=== PATIENT | female | born 1945 | race Caucasian/White ===

== ENCOUNTER → 2017-10-22 | Outpatient (CLI) | payer MEDICARE, OTHER ==
[2017-10-22 14:10] LABS: HCT 39.2 % (34.0-46.0); HGB 12.9 gm/dL (11.4-16.0); MCH 31.2 pg (25.0-35.0); MCHC 32.9 g/dL (31.0-37.0); MCV 94.7 fL (80.0-100.0); Platelet Count 248 k/uL (150-450); RBC 4.13 m/uL (3.80-5.40); RDW 13.2 % (11.5-15.5); WBC 3.6 k/uL (3.8-10.6)
[2017-10-22 14:12] LABS: Appearance,Urine Clear (Clear); Bilirubin,Urine Negative (Negative); Blood,Urine Negative (Negative); Color,Urine Yellow; Glucose,Urine (UA) Negative (Negative); Ketones,Urine Negative (Negative); Leukocyte Esterase,Urine Negative (Negative); Nitrite,Urine Negative (Negative); PH, Urine 7.5 (5.0-8.0); Protein,Urine Trace (Negative); Specific Gravity,Urine 1.018 (1.001-1.035); Urobilinogen,Urine <2.0 mg/dL (<2.0)
[2017-10-22 14:19] LABS: ALT 27 U/L (9-52); AST 29 U/L (14-36); Alkaline Phosphatase 52 U/L (38-126); Anion Gap 8 mmol/L; Blood Urea Nitrogen 23 mg/dL (7-17); Calcium 9.4 mg/dL (8.4-10.2); Carbon Dioxide 30 mmol/L (22-30); Chloride 104 mmol/L (98-107); Glucose 77 mg/dL (74-99); Potassium 4.6 mmol/L (3.5-5.1); Sodium 142 mmol/L (137-145); Total Bilirubin 0.4 mg/dL (0.2-1.3); Total Protein 6.6 g/dL (6.3-8.2)
[2017-10-22 14:23] LABS: INR 1.1 (<1.2); Partial Thromboplastin Time 23.3 sec (22.0-30.0); Prothrombin Time 10.6 sec (9.0-12.0)
== END | disposition home or self-care (01) ==
LOC: LABPAT 13:15
PROVIDERS: ATTEND Orthopaedic Surgery
DX: Z01.812 Encounter for preprocedural laboratory examination (principal); Z79.01 Long term (current) use of anticoagulants
CPT/HCPCS: 36415; 80053; 81003; 85027; 85610; 85730; 86850; 86900; 86901; 87070

== ENCOUNTER 2017-10-30 05:59 | Inpatient (IN) | payer MEDICARE, OTHER ==
[2017-10-23 11:02] VITALS: BMI 27.4
[~2017-10-30 05:59] MED LIST: ACETAMINOPHEN TAB 500 MG TAB PO ONE; DEXAMETHASONE SOD PHOSPHATE 10 MG/ML 1 ML VIAL IV ONE; LACTATED RINGERS 1,000 ML IV SCH; MELOXICAM 7.5 MG TAB PO ONE; MIDAZOLAM 2 MG/2 ML VIAL IV PRN; ONDANSETRON 4 MG/2 ML VIAL IVP ONE; ROPIVACAINE 246.25 MG, EPINEPHrine 0.5 MG, KETOROLAC 30 MG, cloNIDine HCL/PF 80 MCG, WA... MISCELLANE ONE; TRANEXAMIC ACID 1,000 MG in SODIUM CHLORIDE 0.9% 50 ML IVPB ONE; fentaNYL (PF) 50 MCG/ML 2 ML AMP IV PRN
[2017-10-30] MEDS ORDERED: LIDOCAINE 1% 20 ML VIAL (10MG/ML) FOR IV START INTRADERMA ONE (06:25)
[2017-10-30] MEDS ORDERED: DIAZEPAM 5 MG TAB PO PRN ×2 (07:01)
[2017-10-30] MEDS ORDERED: HYDROmorphone 1 MG/ML 1 ML SYRINGE IVP PRN ×3 (07:01)
[2017-10-30] MEDS ORDERED: HYDROcodone/APAP 5-325MG 1 EACH TAB PO PRN ×2 (07:01)
[2017-10-30] MEDS ORDERED: NALOXONE 0.4 MG/ML 1 ML VIAL IV PRN (07:01)
[2017-10-30] MEDS ORDERED: ONDANSETRON 4 MG/2 ML VIAL IVP PRN (07:01)
[2017-10-30] MEDS ORDERED: MAGNESIUM HYDROXIDE 2,400 MG/10 ML CUP PO PRN (07:01)
[2017-10-30] MEDS ORDERED: ceFAZolin 3,000 MG in SODIUM CHLORIDE 0.9% IRRIGATIO 3,000 ML IRRIGATION ONE (07:03)
[2017-10-30] MEDS: ceFAZolin IN SWFI 2 GM/20 ML SYRINGE IVP ONE ×2 (07:03→07:23)
[2017-10-30] MEDS ORDERED: Acetaminophen-Codeine 300-30mg TAB PO PRN (07:10)
[2017-10-30] MEDS ORDERED: LACTATED RINGERS 1,000 ML IV ONE (08:03)
--- NOTE | 2017-10-30 08:37 | FL ---
EXAMINATION TYPE: FL guidance operating room DATE OF EXAM: 10/30/2017 HISTORY: Flouroscopy time 29 seconds of fluoroscopy provided. IMPRESSION: 1. Fluoroscopy time.
--- NOTE | 2017-10-30 08:38 | XR ---
EXAMINATION TYPE: XR Hip Limited RT DATE OF EXAM: 10/30/2017 COMPARISON: NONE HISTORY: Postop TECHNIQUE: One view submitted. FINDINGS: There is a prosthetic hip in near anatomic alignment. There is soft tissue edema and emphysema. IMPRESSION: 1. Postoperative change. Appears in near-anatomic alignment.
--- NOTE | 2017-10-30 08:42 | P.OP ---
Date of Procedure: 10/30/17 Preoperative Diagnosis: Severe osteoarthritis right hip Postoperative Diagnosis: Severe osteoarthritis right hip Procedure(s) Performed: Right total hip arthroplasty with a direct anterior approach Implants: Cleaning and nephew Polarstem size 4 standard Cleaning [employer] Nephew R3, 3 hole acetabular shell, 48 mm Cleaning [employer] Nephew reflection 6.5 mm cancellus screw, 20 mm 2 Cleaning [employer] Nephew R3, XLPE 20 acetabular liner Cleaning [employer] Nephew Oxinium femoral head 32 m, +0 All components were press-fit. The articulation is Oxinium on polyethylene. Anesthesia: spinal Surgeon: Demarcus Yarbrough Drum Dyeing Machine Operator #1: Jennifer Srinivasan Estimated Blood Loss (ml): 100 Pathology: other (Femoral head) Condition: stable Disposition: PACU Indications for Procedure: After failure of conservative treatment we discussed the surgical and nonsurgical treatment options at length. Patient wishes to proceed with a total hip arthroplasty with a direct anterior approach. Complications specific to this procedure were discussed at length, including but not limited to infection, leg length discrepancy, dislocation, and nerve injury. Patient is aware of all these complications and informed consent was obtained Operative Findings: The operative findings are consistent with severe osteoarthritis of the right hip Description of Procedure: Patient was seen and evaluated in the preoperative area, consent was reviewed, and the surgical site was marked with a skin marker. Patient was then brought to the operating room and given prophylactic antibiotics intravenously. 1 g of Tranexamic acid was also given. A spinal anesthetic was administered by the anesthesia department. The patient was then placed on the [place] table with the bony prominences well-padded. The hip area was then prepped and draped in usual sterile fashion. A universal timeout was then performed, which confirmed the patient's name, surgical site, ALLERGIES, and procedure being performed. Next the incision site was located at 1 cm distal and 1 cm lateral to the anterior superior iliac spine. The skin and subcutaneous tissues were sharply incised. Incision was carefully dissected down to the fascia overlying the tensor fascia kartik muscle. This fascia was then incised in line with the incision. Next, using blunt finger dissection, the tensor fascia kartik muscle was dissected off its investing fascia. The muscle was then carefully retracted laterally with a cobra retractor over the lateral neck of the femur. Next, the circumflex vessels were identified and cauterized using the AquaMantis device. The anterior hip capsule was then exposed. The capsule was then opened and an inverted T fashion. Cobra retractors were then placed intracapsularly. The proximal femur was then visualized. The femoral neck was then osteotomized appropriate level above the lesser trochanter. Small amount of traction was placed with the [place] table. A small wedge of bone was then removed from the remaining femoral head. Next, using a corkscrew femoral head was easily removed from the acetabulum. On gross visual inspection, the femoral head had complete loss of articular cartilage in multiple periarticular osteophytes. Attention was then turned to the acetabulum. the acetabulum was exposed and any remaining labrum was excised. Sequential reaming of the acetabulum was performed using fluoroscopic guidance. When the appropriate size was reached, a trial was then placed. The position and fit of the trial was checked with fluoroscopy. The trial was then removed. Then, using fluoroscopic guidance, the final implant was impacted at 20 of anteversion and 40 of abduction, and fully seated in the acetabulum. 2 screws were then placed in the acetabulum. Again fluoroscopy was used to check position of the screws. Next, the liner was then impacted, with a 20 elevated liner located in the anterior superior quadrant. Component locking was confirmed. Attention was then directed to the femur. With the aid of the [place] table, the femur was externally rotated to approximately 130, extended, and abducted under the opposite leg. A side hook was then placed under the proximal femur, and the side hook elevator was used to elevate the proximal femur. Retractors were then placed. A capsular release was performed, as well as a release of the conjoined tendon, which afforded excellent visualization of the proximal femur. Next, a box osteotome was used to lateralize the proximal femur. A speeder hand was then used to locate the femoral canal. Sequential broaching was then performed with appropriate size which afforded excellent fixation in the proximal femur. A trial was then placed with appropriate head and neck, and the hip was gently reduced with the aid of the [place] table. Fluoroscopy was then used to check position of the components, as well as to ensure equal leg lengths. The hip was then gently dislocated and the trials were then removed. Final implants were then impacted and the hip was again reduced. Final fluoroscopic x-rays confirmed that the components were in anatomic position, as well as equal leg lengths. The hip was also taken through range of motion, and found to be stable. The hip was then copiously irrigated with antibiotic solution with pulsatile lavage. The hip was then irrigated with Irrisept solution. The soft tissues were then injected with a ropivacaine solution, which consisted of 246.25 mg of ropivacaine, 0.5 mg of epinephrine, 30 mg of Toradol, 80 g of clonidine, and 48.45 mL of sterile water, for a total of 100 mL of fluid injected. A second dose of 1 g of Tranexamic acid was also given. the fascia was then closed with 2-0 strata fix suture. The subcutaneous tissue was closed with 3-0 Vicryl. The subcuticular tissue was closed with 3-0 strata fix suture. The skin was then closed with Dermabond glue and a sterile silver dressing. The patient was then transferred to the recovery room in stable condition. The assistant professor surgical technology KENAN Bello was required due to the complexity of surgery, and the need for skilled surgical technologist for positioning, draping, exposure, retraction, and closure of the wound.
[2017-10-30] MEDS: SODIUM CHLORIDE 0.9% 1,000 ML IV SCH (10:36)
[2017-10-30] MEDS ORDERED: LORATADINE 10 MG TAB PO PRN (13:51)
[2017-10-30] MEDS: Acetaminophen-Codeine 300-30mg TAB PO PRN ×2 (14:39→20:51)
[2017-10-30] MEDS: ceFAZolin IN SWFI 2 GM/20 ML SYRINGE IVP SCH ×2 (15:32→23:32)
--- NOTE | 2017-10-30 15:50 | P.HPIM ---
History of Present Illness H&P Date: 10/30/17 Chief Complaint: right total hip arthroplasty anterior approach thisis a [id number] of Dr. Ferrer. She has underlying history of hypothyroidism, sciatica, asthma, hyperlipidemia,admitted to service of Dr. Yarbrough for a right total hip arthroplasty performed on 10/30/2017by anterior approach.patient was seen few hours postoperatively and is doing well, patient denies any nausea or vomiting, pains under control. Patient does not any chest pain no lightheadedness, patient is seen with the daughter at bedside, no current concerns.patient has previous left total hip arthroplasty in 2008, no complications then, when anticipating home therapy with the daughter post discharge. No history of DVT or PE in the past, no history of falls no unsteadiness of the gait except recently when she had an exacerbation of her sciatica, patient required a walker use and a trigger injection in the office given left legO week ago. patient recently required a walker use prior to the current surgery. Review of Systems Constitutional: Reports as per HPI, Denies anorexia, Denies chills, Denies chronic headaches, Denies chronic pain, Denies daytime sleepiness, Denies fatigue, Denies fever, Denies lethargy, Denies malaise, Denies night sweats, Denies poor appetite, Denies sweats, Denies weakness, Denies weight gain, Denies weight loss Ears, nose, mouth and throat: Reports as per HPI, Denies ant. neck pain, Denies bleeding gums, Denies dental pain, Denies dysphagia, Denies epistaxis, Denies headache, Denies hoarseness, Denies mouth pain, Denies nasal congestion, Denies nasal discharge, Denies neck fullness/pressure, Denies neck lump, Denies nose pain, Denies odynophagia, Denies post-nasal drip, Denies sinus pain, Denies sinus pressure, Denies swelling in mouth, Denies swelling in throat, Denies sore throat, Denies vertigo, Denies voice changes Cardiovascular: Reports as per HPI, Denies chest pain, Denies claudication, Denies decreased exercise tolerance, Denies dyspnea on exertion, Denies edema, Denies high blood pressure, Denies irregular heart beat, Denies leg edema, Denies lightheadedness, Denies orthopnea, Denies palpitations, Denies paroxysmal nocturnal dyspnea, Denies phlebitis, Denies rapid heart beat, Denies shortness of breath, Denies syncope Respiratory: Reports as per HPI Gastrointestinal: Reports as per HPI Genitourinary: Reports as per HPI Menstruation: Reports as per HPI, Denies amenorrhea, Denies amenorrhea on BC, Denies currently menstrual, Denies cycle < 21 days, Denies cycle > 35 days, Denies cycle variable, Denies menses 1-7 days, Denies menses 8 or > days, Denies menses variable, Denies period heavy, Denies period light, Denies period normal, Denies period spotting, Denies post hysterectomy, Denies postmenopausal , Denies premenarcheal Musculoskeletal: Reports as per HPI, Denies arm numbness/tingling, Denies atrophy, Denies fractures, Denies frequent falls, Denies gait dysfunction, Denies hot joints, Denies leg numbness/tingling, Denies limitation of motion, Denies loss of height, Denies low back pain, Denies morning stiffness, Denies muscle cramps, Denies muscle weakness, Denies myalgias, Denies neck pain, Denies neck stiffness, Denies prior amputations, Denies redness of joints, Denies shooting arm pain, Denies shooting leg pain Integumentary: Reports as per HPI, Denies acne, Denies boils, Denies brittle nails, Denies change in hair/nails, Denies color changes, Denies darkening of skin, Denies depigmentation, Denies dryness, Denies foot/leg ulcers, Denies growths, Denies hirsutism, Denies lesions, Denies onychomycosis, Denies pruritus , Denies rash, Denies sores, Denies striae, Denies unusual bruising, Denies wounds Neurological: Reports as per HPI, Denies aphasia, Denies ataxia, Denies balance difficulties, Denies burning pain, Denies change in mentation, Denies change in smell/taste, Denies change in speech, Denies confusion, Denies convulsions, Denies double vision, Denies gait dysfunction, Denies head injury, Denies headaches, Denies hearing difficulties, Denies lack of coordination, Denies loss of vision, Denies memory loss, Denies migraines, Denies motor disturbance, Denies numbness, Denies paralysis, Denies paresthesias, Denies seizures, Denies sensory deficit, Denies spasticity, Denies syncope, Denies tic, Denies tingling , Denies transient paralysis, Denies tremors, Denies vertigo, Denies weakness, Denies visual changes Psychiatric: Reports as per HPI, Denies anhedonia, Denies anxiety, Denies anxiety attacks, Denies change in appetite, Denies change in libido, Denies change in sleep habits, Denies confusion, Denies depression, Denies difficulty concentrating, Denies disorientation, Denies hallucinations, Denies hopelessness , Denies hypersomnia, Denies insomnia, Denies irritability, Denies memory loss, Denies mood swings, Denies paranoia, Denies sadness/tearfulness, Denies sleep disturbances, Denies suicidal ideation Endocrine: Reports as per HPI, Denies cold intolerance, Denies deepening of the voice, Denies excessive sweating, Denies excessive thirst, Denies fatigue, Denies flushing, Denies heat intolerance, Denies high blood sugars, Denies increase in ring/shoe/hat size, Denies low blood sugars, Denies nocturia, Denies palpitations, Denies polydipsia, Denies polyphagia, Denies polyuria, Denies proptosis, Denies recent glucocorticoid use, Denies thyroid mass, Denies weight change Hematologic/Lymphatic: Reports as per HPI, Denies easy bleeding, Denies easy bruising, Denies lymphadenopathy, Denies lymphedema, Denies thrombophilia Allergic/Immunologic: Reports as per HPI, Denies allergic rhinitis, Denies anaphylaxis, Denies angioedema, Denies gluten intolerance, Denies persistent infections, Denies seasonal allergies, Denies urticaria, Denies wheezing Past Medical History Past Medical History: Asthma, Hyperlipidemia, Osteoarthritis (OA), Thyroid Disorder History of Any Multi-Drug Resistant Organisms: None Reported Past Surgical History: Breast Surgery, Joint Replacement, Tubal Ligation Additional Past Surgical History / Comment(s): breast biopsy, left hip replaced ; colonoscopy Past Anesthesia/Blood Transfusion Reactions: Postoperative Nausea & Vomiting ( PONV) Past Psychological History: ADD/ADHD Smoking Status: Former smoker Past Alcohol Use History: None Reported Additional Past Alcohol Use History / Comment(s): smoked socially from her 30's to 50's Past Drug Use History: None Reported - Past Family History Mother Family Medical History: No Reported History Medications and Allergies Home Medications Medication Instructions Recorded Confirmed Type Atomoxetine HCl [Strattera] 40 mg PO DAILY 08/21/13 10/30/17 History Atorvastatin Calcium [Lipitor] 10 mg PO Q48H 08/21/13 10/30/17 History Budesonide-Formot 160-4.5 Mcg 2 puff INHALATION RT-DAILY 08/21/13 10/30/17 History [Symbicort 160-4.5 Mcg Inhaler] Cetirizine HCl [Zyrtec] 10 mg PO DAILY 08/21/13 10/30/17 History Levothyroxine Sodium [Synthroid] 100 mcg PO DAILY 08/21/13 10/30/17 History Biotin 10,000 mcg PO DAILY 10/23/17 10/30/17 History Cartilage/Collagen/Bor/Hyalur 1 tab PO DAILY 10/23/17 10/30/17 History [Move Free Ultra Tablet] Cholecalciferol (Vitamin D3) 2,000 unit PO DAILY 10/23/17 10/30/17 History [Vitamin D3] Multivitamins, Thera [Multivitamin 1 tab PO DAILY 10/23/17 10/30/17 History (formulary)] Naproxen Sodium [Aleve] 220 mg PO Q12HR PRN 10/23/17 10/30/17 History Olopatadine HCl 1 applic BOTH EYES DAILY 10/23/17 10/30/17 History diphenhydrAMINE HCL [Benadryl] 25 mg PO HS 10/23/17 10/30/17 History Allergies Allergy/AdvReac Type Severity Reaction Status Date / Time codeine AdvReac Nausea & Verified 10/30/17 13:44 Vomiting Physical Exam Vitals: Vital Signs Temp Pulse Pulse Resp BP BP Pulse Ox 10/30/17 14:34 98.5 F 85 104/72 94 L 10/30/17 12:00 70 115/80 10/30/17 11:45 73 116/76 10/30/17 11:30 67 105/75 10/30/17 11:15 73 110/65 95 10/30/17 11:00 65 110/71 100 10/30/17 10:45 72 101/72 92 L 10/30/17 10:30 69 111/80 10/30/17 10:15 72 106/75 98 10/30/17 10:00 96.9 F L 69 113/76 10/30/17 09:35 71 16 96/55 96 10/30/17 09:20 69 16 89/50 100 10/30/17 09:05 67 16 88/5 100 10/30/17 08:51 97.1 F L 73 14 93/51 100 10/30/17 06:25 98.2 F 92 16 132/83 96 Intake and Output 10/30/17 10/30/17 10/30/17 06:59 14:59 22:59 Intake Total 100 2251 Output Total 100 Balance 100 2151 Intake: IV 100 1951 Oral 300 Output: Estimated Blood Loss 100 Other: # Voids 1 Weight 68.039 kg - Constitutional General appearance: cooperative - EENT Eyes: anicteric sclerae, EOMI, PERRLA, dentition normal, normal appearance ENT: NA/AT, normal oropharynx - Neck Neck: normal ROM - Respiratory Respiratory: bilateral: CTA, negative: diminished, dullness, rales - Cardiovascular Rhythm: regular Heart sounds: normal: S1, S2 Abnormal Heart Sounds: no systolic murmur, no diastolic murmur, no rub, no S3 Gallop, no S4 Gallop, no click, no other - Gastrointestinal General gastrointestinal: normal bowel sounds, soft - Integumentary Integumentary: normal, normal turgor - Neurologic Neurologic: CNII-XII intact - Musculoskeletal Musculoskeletal: strength equal bilaterally - Psychiatric Psychiatric: A&O x's 3, appropriate affect, intact judgment & insight Thrombosis Risk Factor Assmnt - DVT/VTE Prophylaxis DVT/VTE Prophylaxis: Pharmacologic Prophylaxis ordered - Choose All That Apply Any of the Below Risk Factors Present?: No Other Risk Factors: Yes Each Risk Factor Represents 2 Points: Age 61-74 years Other congenital or acquired thrombophilia - If yes, enter type in comment: No Thrombosis Risk Factor Assessment Total Risk Factor Score: 2 Thrombosis Risk Factor Assessment Level: Low Risk Assessment and Plan Plan: 1. Right total hip arthroplasty performed 10/30/2017 secondary to advancing DJD , patient is undergoing physical therapy opiates for pain control, incentive spirometry. Despite discharged to home with after this current hospitalization. 2. Asthma without any exacerbation on Symbicort 160 3.Hypothyroidismon levothyroxine 100 g daily 4.Disorder of bone density, and menopause, on vitamin D3 2000 unitsand collagen support 5.hyperlipidemia on Lipitor 6.history of impaired concentration, on Strattera 40 daily scheduled 7.DVT prophylaxis gt spirin 1025 mg twice a day 8. Osteoarthritis on Aleve, this would be discontinued, or opiates medication postop short-term only. Patient can use celecoxib for additional pain control besides Tylenol [address] you Dr[address] Yarbrough in allowing us to precipitate the care. Patient. We are going to follow her with you during this current hospital stay, changes to her treatment for deep based on her clinical progress
[2017-10-30] MEDS: diphenhydrAMINE 25 MG CAP PO SCH (20:50)
[2017-10-30] MEDS: ASPIRIN 325 MG TAB PO SCH (20:51)
[2017-10-30] MEDS: SENNOSIDES-DOCUSATE SODIUM 1 EACH TAB PO SCH (20:51)
[2017-10-30] MEDS ORDERED: ATORVASTATIN 10 MG TAB PO SCH (21:00)
[2017-10-31] MEDS: Acetaminophen-Codeine 300-30mg TAB PO PRN ×4 (02:51→21:03)
[2017-10-31] MEDS: SODIUM CHLORIDE 0.9% 1,000 ML IV SCH ×2 (02:54→17:27)
[2017-10-31] MEDS: LEVOTHYROXINE 100 MCG TAB PO SCH (06:02)
[2017-10-31] MEDS: SYMBICORT 160-4.5 MCG INHALER INHALATION SCH (07:26)
[2017-10-31 07:48] LABS: Basophils % (A) 0 %; Eosinophils # (A) 0.1 k/uL (0-0.7); Eosinophils % (A) 1 %; HCT 36.2 % (34.0-46.0); HGB 11.8 gm/dL (11.4-16.0); Lymphocytes # (A) 0.7 k/uL (1.0-4.8); Lymphocytes % (A) 9 %; MCH 31.2 pg (25.0-35.0); MCHC 32.6 g/dL (31.0-37.0); MCV 95.8 fL (80.0-100.0); Mean Platelet Volume 6.9; Monocytes # (A) 0.7 k/uL (0-1.0); Monocytes % (A) 8 %; Neutrophils # (A) 6.5 k/uL (1.3-7.7); Neutrophils % (A) 81 %; Platelet Count 223 k/uL (150-450); RBC 3.78 m/uL (3.80-5.40); RDW 13.2 % (11.5-15.5)
[2017-10-31] MEDS: CHOLECALCIFEROL 1,000 UNIT TAB PO SCH (08:33)
[2017-10-31] MEDS: hydrOXYzine PAMOATE 25 MG CAP PO PRN ×3 (08:34→21:06)
[2017-10-31] MEDS: ASPIRIN 325 MG TAB PO SCH ×2 (08:35→21:03)
[2017-10-31] MEDS: MELOXICAM 7.5 MG TAB PO SCH (08:37)
--- NOTE | 2017-10-31 09:49 | P.PN ---
Subjective Progress Note Date: 10/31/17 This is a 72-year-old female who is status post right total hip arthroplasty. This is postoperative day #1. Patient is seen and evaluated at bedside with Dr. Demarcus Yarbrough. Patient states that her pain is under control, but she has not been up and walking yet. Patient denies any fever/chills, numbness, weakness , tingling, abdominal pain, shortness of breath or chest pain. Objective - Vital Signs Vital signs: Vital Signs Temp 99.4 F 10/31/17 07:00 Pulse 88 10/31/17 07:00 Resp 16 10/31/17 07:00 BP 122/81 10/31/17 07:00 Pulse Ox 95 10/31/17 07:00 Intake & Output 10/30/17 10/31/17 10/31/17 18:59 06:59 18:59 Intake Total 2651 520 Output Total 100 50 Balance 2551 470 Weight 68.039 kg Intake: IV 1951 Intake, IV Titration 520 Amount Sodium Chloride 0.9% 1, 520 000 ml @ 65 mls/hr IV . [id number] [facility] Rx#:[id number] Oral 700 Output: Drainage 50 Right Knee 50 Estimated Blood Loss 100 Other: # Voids 3 1 - Exam Vital signs are stable. Patient is in no acute distress and is alert and oriented 3. Calf is soft and nontender to palpation. Dressing is clean, dry, and intact. Patient has full foot and ankle motion without pain or difficulty. Neurovascular status and circulatory status are intact. - Labs CBC & Chem 7: 10/31/17 07:23 Labs: Abnormal Lab Results - Last 24 Hours (Table) 10/31/17 Range/Units 07:23 RBC 3.78 L (3.80-5.40) m/uL Lymphocytes # 0.7 L (1.0-4.8) k/uL Assessment and Plan (1) Primary osteoarthritis of right hip Current Visit: Yes Status: Acute Code(s): M16.11 - UNILATERAL PRIMARY OSTEOARTHRITIS, RIGHT HIP SNOMED Code(s): 684299341 (2) S/P total hip arthroplasty Current Visit: Yes Status: Acute Code(s): Z96.649 - PRESENCE OF UNSPECIFIED ARTIFICIAL HIP JOINT SNOMED Code(s): 996354652411 Plan: Continue routine postop care. Continue antocoagulation. Weightbearing as tolerated with a walker Leave dressing in place for 10 days. Possible discharge home tomorrow.
[2017-10-31] MEDS ORDERED: POLYETHYLENE GLYCOL 3350 17 GM POWD.PACK PO PRN (12:20)
--- NOTE | 2017-10-31 14:38 | P.PN ---
Subjective Progress Note Date: 10/31/17 This is a [id number] of Dr. Ferrer. She has underlying history of hypothyroidism, sciatica, asthma, hyperlipidemia,admitted to service of Dr. Yarbrough for a right total hip arthroplasty performed on 10/30/2017by anterior approach.patient was seen few hours postoperatively and is doing well, patient denies any nausea or vomiting, pains under control. Patient does not any chest pain no lightheadedness, patient is seen with the daughter at bedside, no current concerns.patient has previous left total hip arthroplasty in 2008, no complications then, when anticipating home therapy with the daughter post discharge. No history of DVT or PE in the past, no history of falls no unsteadiness of the gait except recently when she had an exacerbation of her sciatica, patient required a walker use and a trigger injection in the office given left legO week ago. patient recently required a walker use prior to the current surgery. 10/31: Patient states she is no longer using a bedpan and up to the bathroom. She is feeling much improved from yesterday. IV fluids will be discontinued. Temperature max 99.6. Patient denies any significant cough. She is using incentive spirometry. Chest x-ray, urinalysis and urine culture ordered. Objective - Vital Signs Vital signs: Vital Signs Temp 99.4 F 10/31/17 07:00 Pulse 88 10/31/17 07:00 Resp 16 10/31/17 07:00 BP 122/81 10/31/17 07:00 Pulse Ox 95 10/31/17 07:00 Intake & Output 10/30/17 10/31/17 10/31/17 18:59 06:59 18:59 Intake Total 2651 520 Output Total 100 50 Balance 2551 470 Weight 68.039 kg Intake: IV 195 Intake, IV Titration 520 Amount Sodium Chloride 0.9% 1, 520 000 ml @ 65 mls/hr IV . [id number] [facility] Rx#:[id number] Oral 700 Output: Drainage 50 Right Knee 50 Estimated Blood Loss 100 Other: # Voids 3 1 - Exam General appearance: cooperative - EENT Eyes: anicteric sclerae, EOMI, PERRLA, dentition normal, normal appearance ENT: NA/AT, normal oropharynx - Neck Neck: normal ROM - Respiratory Respiratory: bilateral: CTA, negative: diminished, dullness, rales - Cardiovascular Rhythm: regular Heart sounds: normal: S1, S2 Abnormal Heart Sounds: no systolic murmur, no diastolic murmur, no rub, no S3 Gallop, no S4 Gallop, no click, no other - Gastrointestinal General gastrointestinal: normal bowel sounds, soft - Integumentary Integumentary: normal, normal turgor - Neurologic Neurologic: CNII-XII intact - Musculoskeletal Musculoskeletal: strength equal bilaterally - Psychiatric Psychiatric: A&O x's 3, appropriate affect, intact judgment & insight - Labs CBC & Chem 7: 10/31/17 07:23 Labs: Abnormal Lab Results - Last 24 Hours (Table) 10/31/17 Range/Units 07:23 RBC 3.78 L (3.80-5.40) m/uL Lymphocytes # 0.7 L (1.0-4.8) k/uL Assessment and Plan Plan: 1. Right total hip arthroplasty performed 10/30/2017 secondary to advancing DJD , patient is undergoing physical therapy opiates for pain control, incentive spirometry. 2. Moderate persistent asthma without any exacerbation on Symbicort 160 3. Hypothyroidismon levothyroxine 100 g daily 4. Disorder of bone density, and menopause, on vitamin D3 2000 unitsand collagen support 5. Hyperlipidemia on Lipitor 6. History of impaired concentration, on Strattera 40 daily scheduled 7. DVT prophylaxis on aspirin 325 mg twice a day 8. Osteoarthritis on Aleve, this would be discontinued, or opiates medication postop short-term only. Patient can use celecoxib for additional pain control besides Tylenol 3 GI prophylaxis Discharge plan: Home tomorrow Impression and plan of care have been directed as dictated by the signing physician. Breonna Dover nurse practitioner acting as scribe for signing physician.
[2017-10-31] MEDS: KETOTIFEN 0.025% OPHTH DROPS 5 ML BTL BOTH EYES SCH (14:44)
--- NOTE | 2017-10-31 15:06 | XR ---
EXAMINATION TYPE: XR chest 2V DATE OF EXAM: 10/31/2017 COMPARISON: None HISTORY: Cough TECHNIQUE: Frontal and lateral views of the chest are obtained. FINDINGS: There is no focal air space opacity, pleural effusion, or pneumothorax seen. The cardiac silhouette size is within normal limits. There is a spinal curvature. There is bronchial wall thicken ing. The aorta is dense. The osseous structures are intact. IMPRESSION: Correlate for bronchitis, reactive airways disease. Follow-up as indicated.
[2017-10-31 18:41] LABS: Appearance,Urine Clear (Clear); Bacteria,Urine Rare /hpf; Bilirubin,Urine Negative (Negative); Blood,Urine Trace (Negative); Color,Urine Yellow; Glucose,Urine (UA) 2+ (Negative); Ketones,Urine Negative (Negative); Leukocyte Esterase,Urine Negative (Negative); Mucus,Urine Rare /hpf; Nitrite,Urine Negative (Negative); PH, Urine 6.5 (5.0-8.0); Protein,Urine Negative (Negative); RBC,Urine 3 /hpf (0-5); Specific Gravity,Urine 1.012 (1.001-1.035); Urobilinogen,Urine <2.0 mg/dL (<2.0); WBC,Urine 2 /hpf (0-5)
[2017-10-31] MEDS: diphenhydrAMINE 25 MG CAP PO SCH (20:59)
[2017-10-31] MEDS: SENNOSIDES-DOCUSATE SODIUM 1 EACH TAB PO SCH (21:02)
[2017-11-01] MEDS: hydrOXYzine PAMOATE 25 MG CAP PO PRN (03:59)
[2017-11-01] MEDS: Acetaminophen-Codeine 300-30mg TAB PO PRN ×2 (03:59→10:53)
[2017-11-01] MEDS: LEVOTHYROXINE 100 MCG TAB PO SCH (05:35)
[2017-11-01] MEDS: SYMBICORT 160-4.5 MCG INHALER INHALATION SCH (07:09)
[2017-11-01 08:01] VITALS: BP 124/63; PULSE 86; RESP 16; TEMP 98
--- NOTE | 2017-11-01 08:28 | P.DS ---
Providers Date of admission: 10/30/17 05:59 Expected date of discharge: 11/01/17 Attending physician: Demarcus Yarbrough Consults: 10/30/17 07:01 Consult Physician Routine Consulting Provider: Madhu Moran Reason/Comments: medical management Do you want consulting provider notified?: Yes Primary care physician: Madhu Moran - Discharge Diagnosis(es) (1) Primary osteoarthritis of right hip Current Visit: Yes Status: Acute (2) S/P total hip arthroplasty Current Visit: Yes Status: Acute Hospital Course: This is a 72-year-old female with known history of degenerative arthritis of the right hip. The patient presents for evaluation. After discussion and consideration patient elects to proceed with total hip arthroplasty. The patient is seen preoperatively by Dr. Yarbrough and medically cleared for surgery by their primary care physician. Patient is admitted to [facility] on 10/30/2017 for total hip arthroplasty. The procedures performed without complication or sequelae. The patient is doing well postoperatively. Labs and vital signs are stable on day of discharge. On day of discharge patient's hip incision is healing well. There is minimal erythema. There is no drainage noted at this time. There is minimal soft tissue swelling to the hip and thigh. Patient has full foot and ankle motion without difficulty or pain. Neurovascular status to the right lower extremity is intact. Patient is discharged home in good condition. Please see med rec for accurate list of home medications. Plan - Discharge Summary Discharge Rx Participant: Yes New Discharge Prescriptions: New Acetaminophen-Codeine 300-30mg [Tylenol #3] 1 - 2 tab PO Q4-6H PRN #84 tablet PRN Reason: Pain Aspirin 325 mg PO BID #60 tab Sennosides [Senokot] 1 tab PO BID #60 tablet No Action Budesonide-Formot 160-4.5 Mcg [Symbicort 160-4.5 Mcg Inhaler] 2 puff INHALATION RT-DAILY Atorvastatin Calcium [Lipitor] 10 mg PO Q48H Levothyroxine Sodium [Synthroid] 100 mcg PO DAILY Cetirizine HCl [Zyrtec] 10 mg PO DAILY Atomoxetine HCl [Strattera] 40 mg PO DAILY diphenhydrAMINE HCL [Benadryl] 25 mg PO HS Naproxen Sodium [Aleve] 220 mg PO Q12HR PRN PRN Reason: Pain Multivitamins, Thera [Multivitamin (formulary)] 1 tab PO DAILY Olopatadine HCl 1 applic BOTH EYES DAILY Cholecalciferol (Vitamin D3) [Vitamin D3] 2,000 unit PO DAILY Cartilage/Collagen/Bor/Hyalur [Move Free Ultra Tablet] 1 tab PO DAILY Biotin 10,000 mcg PO DAILY Discharge Medication List Atomoxetine HCl [Strattera] 40 mg PO DAILY 08/21/13 [History] Atorvastatin Calcium [Lipitor] 10 mg PO Q48H 08/21/13 [History] Budesonide-Formot 160-4.5 Mcg [Symbicort 160-4.5 Mcg Inhaler] 2 puff INHALATION RT-DAILY 08/21/13 [History] Cetirizine HCl [Zyrtec] 10 mg PO DAILY 08/21/13 [History] Levothyroxine Sodium [Synthroid] 100 mcg PO DAILY 08/21/13 [History] Biotin 10,000 mcg PO DAILY 10/23/17 [History] Cartilage/Collagen/Bor/Hyalur [Move Free Ultra Tablet] 1 tab PO DAILY 10/23/17 [ History] Cholecalciferol (Vitamin D3) [Vitamin D3] 2,000 unit PO DAILY 10/23/17 [History] Multivitamins, Thera [Multivitamin (formulary)] 1 tab PO DAILY 10/23/17 [History ] Naproxen Sodium [Aleve] 220 mg PO Q12HR PRN 10/23/17 [History] Olopatadine HCl 1 applic BOTH EYES DAILY 10/23/17 [History] diphenhydrAMINE HCL [Benadryl] 25 mg PO HS 10/23/17 [History] Acetaminophen-Codeine 300-30mg [Tylenol #3] 1 - 2 tab PO Q4-6H PRN #84 tablet [Rx] Aspirin 325 mg PO BID #60 tab 11/01/17 [Rx] Sennosides [Senokot] 1 tab PO BID #60 tablet 11/01/17 [Rx] Follow up Appointment(s)/Referral(s): Madhu Moran MD [Primary Care Provider] - 1 Week Demarcus Yarbrough DO [Doctor of Osteopathic Medicine] - 2 Weeks Activity/Diet/Wound Care/Special Instructions: Weightbearing as tolerated with walker Leave dressing intact. Dressing may be removed by home care nurse in 10 days. May shower with dressing on. Follow-up with [facility] in 2 weeks, please call with any questions or concerns [phone] Discharge Disposition: HOME WITH HOME HEALTH SERVICES
[2017-11-01] MEDS: ASPIRIN 325 MG TAB PO SCH (09:07)
[2017-11-01] MEDS: MELOXICAM 7.5 MG TAB PO SCH (09:07)
[2017-11-01] MEDS: CHOLECALCIFEROL 1,000 UNIT TAB PO SCH (09:08)
[2017-11-01] MEDS: KETOTIFEN 0.025% OPHTH DROPS 5 ML BTL BOTH EYES SCH (09:08)
--- NOTE | 2017-11-01 13:52 | P.PN ---
Subjective Progress Note Date: 11/01/17 This is a [id number] of Dr. Ferrer. She has underlying history of hypothyroidism, sciatica, asthma, hyperlipidemia,admitted to service of Dr. Yarbrough for a right total hip arthroplasty performed on 10/30/2017by anterior approach.patient was seen few hours postoperatively and is doing well, patient denies any nausea or vomiting, pains under control. Patient does not any chest pain no lightheadedness, patient is seen with the daughter at bedside, no current concerns.patient has previous left total hip arthroplasty in 2008, no complications then, when anticipating home therapy with the daughter post discharge. No history of DVT or PE in the past, no history of falls no unsteadiness of the gait except recently when she had an exacerbation of her sciatica, patient required a walker use and a trigger injection in the office given left legO week ago. patient recently required a walker use prior to the current surgery. 10/31: Patient states she is no longer using a bedpan and up to the bathroom. She is feeling much improved from yesterday. IV fluids will be discontinued. Temperature max 99.6. Patient denies any significant cough. She is using incentive spirometry. Chest x-ray, urinalysis and urine culture ordered. 11/01: Asked x-ray showed bronchitis and patient will be started on doxycycline. Also noted patient has some mild erythema at the surgical site. Wound is closed with no breakthrough drainage. Patient remains afebrile. Urinalysis was negative for any infection. Patient is scheduled for discharge home today. Objective - Vital Signs Vital signs: Vital Signs Temp 98.0 F 11/01/17 08:00 Pulse 86 11/01/17 08:00 Resp 16 11/01/17 08:00 BP 124/63 11/01/17 08:00 Pulse Ox 97 11/01/17 08:00 Intake & Output 10/31/17 11/01/17 11/01/17 18:59 06:59 18:59 Intake Total 200 Balance 200 Intake: Oral 200 Other: # Voids 2 - Exam General appearance: cooperative - EENT Eyes: anicteric sclerae, EOMI, PERRLA, dentition normal, normal appearance ENT: NA/AT, normal oropharynx - Neck Neck: normal ROM - Respiratory Respiratory: bilateral: CTA, negative: diminished, dullness, rales - Cardiovascular Rhythm: regular Heart sounds: normal: S1, S2 Abnormal Heart Sounds: no systolic murmur, no diastolic murmur, no rub, no S3 Gallop, no S4 Gallop, no click, no other - Gastrointestinal General gastrointestinal: normal bowel sounds, soft - Integumentary Integumentary: normal, normal turgor - Neurologic Neurologic: CNII-XII intact - Musculoskeletal Musculoskeletal: strength equal bilaterally - Psychiatric Psychiatric: A&O x's 3, appropriate affect, intact judgment & insight - Labs CBC & Chem 7: 10/31/17 07:23 Labs: Abnormal Lab Results - Last 24 Hours (Table) 10/31/17 Range/Units 18:13 Urine Glucose (UA) 2+ H (Negative) Urine Blood Trace H (Negative) Urine Bacteria Rare H (None) /hpf Urine Mucus Rare H (None) /hpf Microbiology - Last 24 Hours (Table) 10/31/17 18:13 Urine Culture - Preliminary Urine,Clean Catch Assessment and Plan Plan: 1. Right total hip arthroplasty performed 10/30/2017 secondary to advancing DJD , patient is undergoing physical therapy opiates for pain control, incentive spirometry. 2. Moderate persistent asthma without any exacerbation on Symbicort 160 3. Hypothyroidismon levothyroxine 100 g daily 4. Disorder of bone density, and menopause, on vitamin D3 2000 unitsand collagen support 5. Hyperlipidemia on Lipitor 6. History of impaired concentration, on Strattera 40 daily scheduled 7. DVT prophylaxis on aspirin 325 mg twice a day 8. Osteoarthritis on Aleve, this would be discontinued, or opiates medication postop short-term only. Patient can use celecoxib for additional pain control besides Tylenol 3 9. Bronchitis. Patient started on doxycycline for home. GI prophylaxis Discharge plan: Home Impression and plan of care have been directed as dictated by the signing physician. Breonna Dover nurse practitioner acting as scribe for signing physician.
== END 2017-11-01 12:20 | disposition home health service (06) | DRG 470 ==
LOC: 2ORMAIN 05:59 → 3SUR 08:46
PROVIDERS: ADMIT Orthopaedic Surgery; ATTEND Orthopaedic Surgery
PROC: 0SR906A Replacement of Right Hip Joint with Oxidized Zirconium on Polyethylene Synthetic Substitute, Uncemented, Open Approach (ICD-10-PCS; principal; 2017-10-30 07:00)
DX: M16.11 Unilateral primary osteoarthritis, right hip (principal); E03.9 Hypothyroidism, unspecified; E78.5 Hyperlipidemia, unspecified; F90.9 Attention-deficit hyperactivity disorder, unspecified type; J40 Bronchitis, not specified as acute or chronic; M89.9 Disorder of bone, unspecified; Z79.51 Long term (current) use of inhaled steroids; Z87.891 Personal history of nicotine dependence; Z78.0 Asymptomatic menopausal state; Z79.899 Other long term (current) drug therapy; Z88.5 Allergy status to narcotic agent; Z79.890 Hormone replacement therapy; J45.40 Moderate persistent asthma, uncomplicated
CPT/HCPCS: 71046; 73501; 81001; 85025; 86850; 86891; 86900; 86901; 87086; 88300; 94640

== ENCOUNTER → 2022-11-22 | Outpatient (CLI) | payer MEDICARE, OTHER ==
--- NOTE | 2022-11-22 14:39 | US ---
EXAMINATION TYPE: US kidneys/renal and bladder DATE OF EXAM: 11/22/2022 COMPARISON: NONE CLINICAL INDICATION: Female, 77 years old with history of R31.9 HEMATURIA R10.2 PELVIC AND PERINEAL P AIN; Gross hematuria EXAM MEASUREMENTS: Right Kidney: 11.1 x 5.1 x 5.2 cm Left Kidney: 10.4 x 4.6 x 4.7 cm Post Void Residual Volume: 45 mL Right Kidney: wnl Left Kidney: wnl Bladder: Mass-like area noted posterior bladder wall measuring 2.5 x 1.2 x 2.2 cm Bilateral Jets seen: Yes Normal Post Void Residual: Yes There is no evidence for hydronephrosis at this point in time. No nephrolithiasis is seen. No faye s are identified. The urinary bladder is anechoic. Bilateral ureteral jets are seen. IMPRESSION: Secondary posterior urinary bladder. Recommend CT urography for further evaluation.
--- NOTE | 2022-11-22 14:49 | US ---
EXAMINATION TYPE: US pelvic complete DATE OF EXAM: 11/22/2022 COMPARISON: NONE CLINICAL INDICATION: Female, 77 years old with history of R31.9 HEMATURIA R10.2 PELVIC AND PERINEAL P AIN; Pelvic discomfort; hematuria TECHNIQUE: Transabdominal (TA). EXAM MEASUREMENTS: Uterus: 4.8 x 1.7 x 4.1 cm 1. Uterus: Anteverted Limited due to overlying bowel gas 2. Endometrium: Obscured by overlying bowel gas 3. Right Ovary: Obscured by overlying bowel gas 4. Left Ovary: Obscured by overlying bowel gas 5. Bilateral Adnexa: wnl 6. Posterior cul-de-sac: wnl Hypoechoic focus noted within the bladder noted; noted on renal exam with measurements. IMPRESSION: No distinct abnormality of the uterus or ovaries. See renal and urinary bladder examination from the same date.
== END | disposition home or self-care (01) ==
LOC: RADUSWWP 13:41
PROVIDERS: ATTEND Internal Medicine Geriatric Medicine
DX: R31.0 Gross hematuria (principal); R10.2 Pelvic and perineal pain
CPT/HCPCS: 76770; 76856

== ENCOUNTER → 2023-10-23 | Outpatient (CLI) | payer MEDICARE, OTHER ==
--- NOTE | 2023-10-23 23:16 | BD ---
EXAMINATION TYPE: Axial Bone Density DATE OF EXAM: 10/23/2023 CLINICAL HISTORY: 78 years old Female. ICD-10 CODE: M81.0 AGE RELATED OSTEO Height: 61.7in Weight: 150lb FRAX RISK QUESTIONS: History of Fracture in Adulthood: yes Secondary Osteoporosis: 3. Menopause before 45: yes RISK FACTORS HISTORY OF: Surgery to Spine/Hip(right/left)/Wrist (right/left): marissa hip replacements When: 2008 and 2017 MEDICATIONS: Thyroid Medications: Which medication: Synthroid How Long: about 20 years EXAM MEASUREMENTS: Bone mineral densitometry was performed using the [employer] System. Bone mineral density as measured about the Lumbar spine is: ----- L1-L4(G/cm2): 1.328 T Score Values are as follows: ----- L1: 0.1 ----- L2: 1.5 ----- L3: 1.2 ----- L4: 1.9 ----- L1-L4: 1.2 Z Score Values are as follows: ----- L1: 1.8 ----- L2: 3.2 ----- L3: 2.9 ----- L4: 3.6 ----- L1-L4: 3.0 First dexa at [facility] Bone mineral density about the L Wrist (g/cm2): 0.463 T Score values are as follows: -----Dist. R+U: -3.9 -----Prox. R+U: -2.6 -----Radius total: -3.5 Z Score values are as follows: -----Dist. R+U: -1.1 -----Prox. R+U: 0.1 -----Radius total: -0.7 First dexa at [facility] FRAX%s: No FRAX IMPRESSION: Osteoporosis (T Score less than -2.5). There is increased fracture risk and therapy is usually indicated based on age. Re-Screen 1-2 years. NOTE: T-SCORE=SD OF THE YOUNG ADULT MEAN. [facility], , 10/23/2023 11:13 PM
--- NOTE | 2023-10-29 08:23 | MM ---
Reason for Exam: Screening (asymptomatic). Last mammogram was performed 2 year(s) and 0 month(s) ago. Patient History: Menarche at age 9. First Full-Term at age 18. Postmenopausal. Other cancer, age 77. Patient used Hormonal Contraceptives for 2 years. Patient used Estrogen and Progesterone for 5 years. Benign Excisional Biopsy on the left side. Risk Values: Terese 5 year model risk: 1.9%. NCI Lifetime model risk: 3.0%. Prior Study Comparison: 11/05/2001 Bilateral Screening Mammogram, [facility]. 11/06/2002 Bilateral Screening Mammogram, [facility]. 07/04/2006 Bilateral Diagnostic Mammogram, [facility]. 07/04/2006 Bilateral Screening Mammogram, [facility]. 10/08/2020 Bilateral Screening Mammogram, [facility]. 10/27/2021 Bilateral Screening Mammogram, [facility]. Tissue Density: The breasts are heterogeneously dense, which may obscure small masses. Findings: Analyzed By CAD. There is no suspicious group of microcalcifications or new suspicious mass in either breast. Benign-appearing calcifications. Overall Assessment: Benign, BI-RAD 2 Management: Screening Mammogram of both breasts in 1 year. . Patient should continue monthly self-breast exams. A clinical breast exam by your physician is recommended on an annual basis. This exam should not preclude additional follow-up of suspicious palpable abnormalities. Note on Terese scores and lifetime risk: 1. A Terese score greater than 3% is considered moderate risk. If this is the case, consider specialist referral to assess eligibility for a risk reducing agent. 2. If overall lifetime risk for the development of breast cancer is 20% or higher, the patient may qualify for future screening with alternating mammogram and breast MRI. [facility], , 10/29/2023 8:20 AM. Electronically signed and approved by: Madhu Ryan M.D. Radiologis
== END | disposition home or self-care (01) ==
LOC: RADMAMWWP 14:42
PROVIDERS: ATTEND Internal Medicine Geriatric Medicine
CPT/HCPCS: 77063; 77067; 77080